=== PATIENT | female | born 1970 | race Caucasian/White ===

== ENCOUNTER 2024-05-01 05:58 | Day surgery (SDC) | payer OTHER ==
[2024-04-26 13:24] VITALS: BP 93/61
[~2024-05-01] VITALS: Ht 165.1 cm; Wt 66.8 kg
[~2024-05-01 05:58] MED LIST: ADVAIR 100-501 EACH INH; BUSPIRONE HCL5 MG PO; CENTANY30 GM; CYCLOBENZAPRINE10 MG PO; EMGALITY120 MG/1 M; ESTRACE2 MG PO; ESTRACE42.5 GM VAGINAL; LACTATED RINGER'S 1,000 ML IV SCH; LEVOTHYROXINE50 MC1 PO; OXYCODONE HCL5 MG PO; SINGULAIR10 MG PO; SPIRONOLACTONE100 MG NG; TOPAMAX100 MG PO; UBRELVY50 MG PO; VENTOLIN HFA18 GM INH
[2024-05-01 06:08] VITALS: BP 104/63
[2024-05-01] MEDS ORDERED: FAMOTIDINE 20 MG/ 2 ML VIAL ONE (06:29)
[2024-05-01] MEDS ORDERED: DEXAMETHASONE SOD PHOS 4 MG/ML VIAL ONE (06:29)
[2024-05-01] MEDS ORDERED: ondansetron HCL 4 MG/2 ML VIAL ONE (06:29)
[2024-05-01] MEDS ORDERED: KETOROLAC TROMETHAMINE 30 MG/ML VIAL ONE (06:29)
[2024-05-01] MEDS ORDERED: propofoL 200 MG/20 ML VIAL ONE (06:29)
[2024-05-01] MEDS ORDERED: fentaNYL citrate 100 MCG/2 ML VIAL ONE (06:29)
[2024-05-01] MEDS ORDERED: METOCLOPRAMIDE HCL 10 MG/2 ML SDV ONE (06:29)
[2024-05-01] MEDS ORDERED: LACTATED RINGER'S 1,000 ML IV ONE (06:29)
[2024-05-01] MEDS ORDERED: MIDAZOLAM HCL 2 MG/2 ML VIAL ONE (06:29)
[2024-05-01] MEDS ORDERED: OXYMETAZOLINE HCL 30 ML BTL NAS SCH (06:30)
[2024-05-01] MEDS ORDERED: LIDOCAINE HCL 1% 5 ML SDV INJ ONE (07:00)
[2024-05-01] MEDS ORDERED: IBLOOD GLUCOSE TEST STRIP 1 EA TEST VI PRN ×2 (07:00→08:30)
[2024-05-01] MEDS ORDERED: CEFAZOLIN SODIUM 2 GM/20 ML SYR IV SCH (07:00)
--- NOTE | 2024-05-01 07:32 | NUR ---
VISITED DURING SPIRITUAL CARE ROUNDS. PT IN OVERALL GOOD SPIRITS. STATES NO CONCERNS OR NEEDS. EDGE GRINDER MACHINE PROVIDED SUPPORTIVE PRESENCE, HOSPITALITY, PRAYER, FACILITATED INTERACTION WITH THERAPY ANIMAL. PT EXPRESSED GRATITUDE.
[2024-05-01] MEDS ORDERED: NALOXONE HCL 0.4 MG SYR IV PRN (08:30)
[2024-05-01] MEDS ORDERED: METOCLOPRAMIDE HCL 10 MG/2 ML SDV IV PRN (08:30)
[2024-05-01] MEDS ORDERED: ondansetron HCL 4 MG/2 ML VIAL IV PRN (08:30)
[2024-05-01] MEDS ORDERED: droPERidol 5 MG/2 ML VIAL IV PRN (08:30)
[2024-05-01] MEDS ORDERED: fentaNYL citrate 50 MCG/ML SDV IV PRN (08:30)
[2024-05-01] MEDS ORDERED: MORPHINE SULFATE 10 MG/ML VIAL IV PRN (08:30)
[2024-05-01] MEDS ORDERED: PROCHLORPERAZINE EDISYLATE 10 MG/2 ML VIAL IV PRN (08:30)
[2024-05-01] MEDS ORDERED: ePHEDrine sulfate 50 MG/ML AMP ONE (08:36)
[2024-05-01 08:40] VITALS: BP 113/63
--- NOTE | 2024-05-01 08:57 | NUR ---
05/01/24 0857 Sheets,Roxana 0808 PT ASLEEP WITH ORAL AIRWAY IN PLACE AND JAW THRUST USED BY CNRA TO MAINTAIN AIRWAY. RESP EVEN AND UNLABORED. HOB INCREASED SLIGHTLY. 10L VIA MASK IN PLACE. DRESSING CDI AND PACKING PAPERWORK AT BEDSIDE. 0815 PT HEAD TUNRED TO SIDE AND JAW THRUST NO LONGER NEEDED. 0820 PT OPENED HER EYES AND LIFTED HER HEAD FROM PILLOW, ORAL AIRWAY REMOVED AND PT REORIENTED TO PACU. VSS. PT ASKING FOR WATER. 0825 HOB INCREASED AND PT SIPPING WATER PER REQUEST. 0830 PLAN OF CARE DISCUSSED. PT DENEIS NAUSEA AND PAIN. 0840 REPORT TO DS RN AND ALL QUESTIONS ANSWERED. PT SIPPING WATER AND CALL LIGHT WITHIN REACH.
--- NOTE | 2024-05-01 08:59 | NUR ---
0840 PT ARRIVED TO DAY SURGERY RM 6 VIA STREACHER. REPORT TAKEN FROM CORNELIO Silva RN. PT REPORTS 5/10 PAIN THAT IS CLIMBING. PT ABLE TO TOLERATE PO PUDDING AND CRACKERS AND WATER WHILE RN IN ROOM. VITALS TAKEN. IV ASSESSED. PT HAS CALL LIGHT WITHIN REACH. PERSONAL ITEMS WITHIN REACH. BED LOW AND LOCKED. PT REPORTS NO NAUSEA AT THIS TIME.
[2024-05-01] MEDS ORDERED: HYDROCODONE/ACETA 5/325 TAB PO PRN (09:00)
[2024-05-01 09:29] VITALS: BP 114/58
--- NOTE | 2024-05-01 09:48 | NUR ---
0925 PT REPORTING 6/10 PAIN AND HAS NOT GOTTEN BETTER SINCE FIRST DOSE OF PAIN MEDICATIONS. GAVE PT PAIN MEDICATIONS PER EMAR.
--- NOTE | 2024-05-01 10:08 | NUR ---
1004 PT ABLE TO AMBULATE TO BATHROOM AND VOID 800 MLS OF CLEAR YELLOW URINE. PT REPORTS PAIN IS NOW DOWN TO A TOLERABLE 4/10 PAIN. DRIP PAD CHANGED, PT HAS SMALL AMOUNT OF SEROSANGINOUS DRAINAGE BUT MOSTLY JUST CLEAR NASAL DRAIAGE ON DRIP PAD. 1009 PT ABLE TO DRESS ON OWN.
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
--- NOTE | 2024-05-01 10:46 | NUR ---
1046 PT RESTING IN ROOM ON CELL PHONE JUST AWAITING RIDE TO GO HOME. PT HAS MET ALL REQUIREMENTS FOR DISCHARGE. PT ABLE TO AMBULATE TO BATHROOM ON OWN.
--- NOTE | 2024-05-01 12:20 | NUR ---
1220 PT STILL RESTING IN BED, PT STATES THAT HER RIDE WILL BE ON THE WAY SOON.
[2024-05-01 12:22] VITALS: BP 111/666
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
--- NOTE | 2024-05-01 13:53 | NUR ---
1340 PT RIDE CALLED AND SAID HE IS AT THE HOSPITAL 1345 PT RIDE WAS NOT AT FRONT OF THE HOSPITAL. PT CALLED RIDE AGAIN AND PT RIDE WAS AT [facility]. 1350 PT RIDE ARRIVED TO FRONT OF THE HOSPITAL WHERE PT AND RN WERE WAITING, PT IN WHEELCHAIR WITH DISCHARGE INSTUCTIONS AND PRESCRIPTION IN HAND. PT RIDE SEEMED UNIMPAIRED AT THIS TIME.
--- NOTE | 2024-05-01 14:20 | OR ---
[facility] [address] [place], [place] [address] Signed DATE OF OPERATION: 05/01/2024 SURGEON: Kash Bass MD PREOPERATIVE DIAGNOSIS: Septal deformity and inferior turbinate hypertrophy causing nasal obstruction. POSTOPERATIVE DIAGNOSIS: Septal deformity and inferior turbinate hypertrophy causing nasal obstruction. PROCEDURES: 1. Septoplasty. 2. Cautery, bilateral inferior turbinates. 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 She has been unresponsive to appropriate outpatient medications and is taken to the operating room for the above-mentioned procedures. OPERATIVE PROCEDURE AND FINDINGS: After informed consent, the patient was taken to the operating room, placed in supine position, where general LMA anesthesia was induced. Patient and procedure were verified. The patient was repositioned. The patient received preoperative intranasal oxymetazoline and intravenous Ancef. Headlight speculum exam of the nasal cavity showed good decongestion of the inferior turbinates. There was a very prominent obstructive septal deformity on the left side along shelf extending all the way back posteriorly. The septal mucosa was injected with 1% lidocaine with epi. Deviated septal bone and cartilage was then excised from the left side with the Prashanth. The septum was medialized with a speculum. Airway was markedly improved in this manner. The inferior turbinates were then cauterized with a long handle needle point cautery starting on the left. Multiple transmucosal passes of the inferior turbinate on the medial and inferior surface starting anteriorly extending all the way back posteriorly. Excellent shrinkage of the turbinate. Hemostasis verified. The same procedure on the right inferior turbinate. Packing was then placed. Trimmed Merocel, one piece each side, coated with Neosporin, tied anteriorly over a pad. The pharynx was suctioned clear of blood and secretions. The patient was then awakened, extubated, and Electronically Signed By: KASH BASS MD 05/01/24 1420 PATIENT NAME: SILVIA BISWAS OPERATIVE REPORT DATE OF : 74 REPORT #: [id number] PHYSICIAN: KASH BASS MD PCP: AMALIA AKHTAR PA-C REPORT IS CONFIDENTIAL AND NOT TO BE RELEASED WITHOUT AUTHORIZATION [facility] [address] [place] [address] [place], [place] [address] Signed transported to the recovery room in good condition. COMPLICATIONS: No complications. BLOOD LOSS: Minimal. SPECIMEN: No specimen. DRAINS: No drains. PACKING: One piece of Merocel, each nostril. Kash Bass MD GC/MODL /[id number] Copies: ~ Electronically Signed By: KASH BASS MD 05/01/24 1420 PATIENT NAME: SILVIA BISWAS OPERATIVE REPORT DATE OF : 74 REPORT #: [id number] PHYSICIAN: KASH BASS MD PCP: AMALIA AKHTAR PA-C REPORT IS CONFIDENTIAL AND NOT TO BE RELEASED WITHOUT AUTHORIZATION
[2024-05-01] MEDS ORDERED: SEVOFLURANE 250 ML BTL INH ONE (16:19)
== END 2024-05-01 12:36 | disposition home or self-care (01) ==
LOC: DS 05:58
PROVIDERS: ATTEND Otolaryngology
PROC: 09BM0ZZ Excision of Nasal Septum, Open Approach (ICD-10-PCS; principal; 2024-05-01 07:30)
DX: J34.2 Deviated nasal septum (principal); J34.3 Hypertrophy of nasal turbinates; J34.89 Other specified disorders of nose and nasal sinuses; I10 Essential (primary) hypertension; F31.9 Bipolar disorder, unspecified; E03.9 Hypothyroidism, unspecified; F90.9 Attention-deficit hyperactivity disorder, unspecified type; Z88.6 Allergy status to analgesic agent; Z88.8 Allergy status to other drugs, medicaments and biological substances
CPT/HCPCS: 00160; J0690; J1100; J1885; J2250; J2405; J2704; J2765; J3010; J7121

== ENCOUNTER 2024-12-20 09:23 | Day surgery (SDC) | payer OTHER ==
[~2024-12-20] VITALS: Ht 165.1 cm; Wt 74.0 kg
[~2024-12-20 09:23] MED LIST changes: +ABILIFY5 MG PO; +ADVAIR 250-501 EACH INH; +ALLER-TEC10 MG PO; +AMITIZA24 MCG PO; +AZELASTINE137 MCG/0. NAS; +BIOTIN5000 MC2 PO; +BUSPIRONE HCL30 MG PO; +CALCITRIOL0.5 MCG PO; +CAPLYTA42 MG PO; +DIFLUCAN40 MG/1 ML PO; +EMGALITY120 MG/1 M SUB-Q; +EPIN0.3P IM; +FLUTICASONE PRO12 G1 INH; +FLUTICASONE PRO16 GM NAS; +IBLOOD GLUCOSE TEST STRIP 1 EA TEST VI PRN; +LEVOTHYROXINE75 MC1 PO; +LIDOCAINE HCL 1% 5 ML SDV INJ ONE; +POTASSIUM CHLO10 MEQ PO; +QULIPTA60 MG PO; +REXULTI4 MG PO; +SENNA8.6 MG PO; +TRAZODONE HCL100 MG PO; +VITAMIN C500 M1 PO; +VITAMIN D21250 MCG PO; +ZESTRIL10 MG PO
[2024-12-20 09:34] VITALS: BP 125/72
[2024-12-20] MEDS ORDERED: GLUCAGON,HUMAN RECOMBINANT 1 MG/ML VIAL ONE (10:26)
[2024-12-20 11:32] VITALS: BP 111/75
--- NOTE | 2024-12-20 12:11 | NUR ---
12/20/24 1211 Roxana Zee 1112 PT ARRIVED TO PACU ASLEEP AND RESP EVEN AND UNLABORED. 1122 PT WAKES AND SITS UP IN BED. HOB INCREASED, PT DENIES CONCERNS. 1128 PT SIPPING WATER. 1144 PT DRESSED HERSELF AND DC INSTRUCTIONS AND PAPERWORK GIVEN. PT DC VIA WC TO .
--- NOTE | 2024-12-21 10:36 | OR ---
[facility] [address] [facility] [place], [place] [address] Signed DATE OF OPERATION: 12/20/2024 SURGEON: Sarah Noble DO PREOPERATIVE DIAGNOSES: 1. Unexplained abdominal pain. 2. Colon cancer screening. POSTOPERATIVE DIAGNOSES: 1. Unexplained abdominal pain. 2. Colon cancer screening. 3. Distal esophagitis and punctate gastritis. 4. Incomplete bowel prep for colonoscopy. PROCEDURES PERFORMED: 1. Esophagogastroduodenoscopy with biopsy of the stomach and gastroesophageal junction. 2. Partial sigmoidoscopy without completion due to inadequate bowel prep. ANESTHESIA: IV sedation. ESTIMATED BLOOD LOSS: None. DRAINS: None. COMPLICATIONS: None. DESCRIPTION OF PROCEDURE: The patient was brought to the GI lab, placed in the supine position. After induction of IV sedation through preanesthetized oropharynx and a bite block, the Olympus video endoscope was then introduced into the mouth directed to the length of the esophagus into the distal esophagus. There was some mild to moderate distal esophagitis noted. No ulcerations were appreciated. Biopsy of the GE junction was taken and passed off the field. The scope was then placed through the stomach, exploration was then carried out. It was noted that the patient had a Esha-en-Y gastric bypass that was visualized and the gastrojejunostomy was visualized. No evidence of ulceration was appreciated. Mild gastritis was noted. Biopsy of the gastric pouch was then taken and passed off the Electronically Signed By: SARAH NOBLE DO 12/21/24 1036 PATIENT NAME: CUEVAKODI OPERATIVE REPORT DATE OF : 74 REPORT #: [id number] PHYSICIAN: SARAH NOBLE DO PCP: AMALIA AKHTAR PA-C REPORT IS CONFIDENTIAL AND NOT TO BE RELEASED WITHOUT AUTHORIZATION [facility] [address] [place], [place] [address] Signed field for pathologic review. The scope was placed through the gastrojejunostomy into the Esha limb. No intrinsic or extrinsic masses were noted. No ulcerations were noted. Scope was brought back into the gastrojejunostomy. She had a small afferent limb with no ulcerations noted. The scope was then brought back into the stomach. Stomach was decompressed. Scope was withdrawn and the patient was then prepared for colonoscopy. The patient was then placed in the left lateral position, padded to the satisfaction of anesthesia. Once again Olympus video colonoscope was introduced to the anus and then advanced to the rectosigmoid. Upon encountering rectosigmoid, some large areas of hard stool were noted. Multiple attempts were made to pass by these areas of stool, but due to an incomplete bowel prep, the completion of the colonoscopy was impossible at this time. The scope was then withdrawn. The patient tolerated the procedure well, taken to the recovery room in satisfactory condition. DO LATESHA Sabillon/BETTYE /[id number] Copies: ~ Electronically Signed By: SARAH NOBLE DO 12/21/24 1036 PATIENT NAME: KODI CUEVA OPERATIVE REPORT DATE OF : 74 REPORT #: [id number] PHYSICIAN: SARAH NOBLE DO PCP: AMALIA AKHTAR PA-C REPORT IS CONFIDENTIAL AND NOT TO BE RELEASED WITHOUT AUTHORIZATION
--- NOTE | 2024-12-25 06:12 | PATH ---
[facility] [address] [facility] [place], [place] [address] Signed SPECIMEN(S): A GE JUNCTION BIOPSY SPECIMEN(S): B STOMACH BIOPSY SPECIMEN SOURCE: A. GE JUNCTION BIOPSY B. STOMACH BIOPSY CLINICAL HISTORY: Abdominal pain, IBS, gastritis, LA grade B esophagitis FINAL PATHOLOGIC DIAGNOSIS: A. GE junction: - Benign gastric mucosa with focal slight chronic inflammation. - Negative for specialized intestinal metaplasia or dysplasia. - Negative for esophageal mucosa on these sections. B. Stomach biopsy: - Benign gastric mucosa with focal slight chronic inflammation. - Negative for evidence of Helicobacter organisms on routine HE-stained sections. JVR:smn MICROSCOPIC EXAMINATION: Histologic sections of all submitted blocks are examined by light microscopy. These findings, together with the gross examination, support the pathologic diagnosis. GROSS DESCRIPTION: A. The specimen, labeled and designated "Cueva, GE junction biopsy," is received in formalin and consists of one cannon soft tissue fragment, 0.4 cm. Entirely submitted in (A1). B. The specimen, labeled and designated "Cueva, stomach biopsy," is received in formalin and consists of one cannon soft tissue fragment, 0.4 cm. Entirely submitted in (B1). VB (under the direct supervision of a pathologist) The Gross Description was prepared using a voice recognition system. The report was reviewed for accuracy; however, sound-alike word errors, addition and/or deletions may occur. If there is any question about this report, please contact Client Services. PERFORMING LABORATORY: Technical component was performed by [facility], Joni Yates, PATIENT NAME: KODI CUEVA PATHOLOGY DATE OF : 74 REPORT #: [id number] PHYSICIAN: ANTIONETTE SMART PCP: AMALIA AKHTAR PA-C REPORT IS CONFIDENTIAL AND NOT TO BE RELEASED WITHOUT AUTHORIZATION [address], [place] [address] [place] [address] (CLIA# [id number]). Professional interpretation was performed by [facility] [address] [address] (CLIA#: [id number]). Diagnostician: Andre Roca MD Pathologist Electronically Signed 12/24/2024 Copies: ~ PATIENT NAME: KODI CUEVA PATHOLOGY DATE OF : 74 REPORT #: [id number] PHYSICIAN: ANTIONETTE SMART PCP: AMALIA AKHTAR PA-C REPORT IS CONFIDENTIAL AND NOT TO BE RELEASED WITHOUT AUTHORIZATION
== END 2024-12-20 11:44 | disposition home or self-care (01) ==
LOC: OPS 09:23 → DS 09:23 → OPS 11:30 → DS 14:20
PROVIDERS: ATTEND Surgery
PROC: 0DB68ZX Excision of Stomach, Via Natural or Artificial Opening Endoscopic, Diagnostic (ICD-10-PCS; 2024-12-20)
PROC: 0DJD8ZZ Inspection of Lower Intestinal Tract, Via Natural or Artificial Opening Endoscopic (ICD-10-PCS; principal; 2024-12-20 11:30)
PROC: 0DB48ZX Excision of Esophagogastric Junction, Via Natural or Artificial Opening Endoscopic, Diagnostic (ICD-10-PCS; 2024-12-20 11:30)
DX: R10.30 Lower abdominal pain, unspecified (principal); K21.00 Gastro-esophageal reflux disease with esophagitis, without bleeding; K29.50 Unspecified chronic gastritis without bleeding; K58.9 Irritable bowel syndrome, unspecified; J45.909 Unspecified asthma, uncomplicated; I10 Essential (primary) hypertension; E03.2 Hypothyroidism due to medicaments and other exogenous substances; Z98.84 Bariatric surgery status; Z79.899 Other long term (current) drug therapy; Z79.890 Hormone replacement therapy; Z88.8 Allergy status to other drugs, medicaments and biological substances; Z88.6 Allergy status to analgesic agent
CPT/HCPCS: 00813; 88305; J1610; J2704; J7121

== ENCOUNTER 2025-02-20 08:39 | Day surgery (SDC) | payer OTHER | END 2025-02-20 12:13 | disposition home or self-care (01) | LOC: DS 08:39 | PROC: 0DJD8ZZ Inspection of Lower Intestinal Tract, Via Natural or Artificial Opening Endoscopic (ICD-10-PCS; principal; 2025-02-20) | PROC: 0DB68ZX Excision of Stomach, Via Natural or Artificial Opening Endoscopic, Diagnostic (ICD-10-PCS; 2025-02-20) | DX: K29.70 Gastritis, unspecified, without bleeding (principal); K21.00 Gastro-esophageal reflux disease with esophagitis, without bleeding; Z12.11 Encounter for screening for malignant neoplasm of colon; K57.30 Diverticulosis of large intestine without perforation or abscess without bleeding; K58.0 Irritable bowel syndrome with diarrhea; I10 Essential (primary) hypertension; E03.2 Hypothyroidism due to medicaments and other exogenous substances; F31.81 Bipolar II disorder; Z79.899 Other long term (current) drug therapy; Z88.5 Allergy status to narcotic agent; Z88.6 Allergy status to analgesic agent; Z88.8 Allergy status to other drugs, medicaments and biological substances; Z90.710 Acquired absence of both cervix and uterus ==